=== PATIENT | female | born 1980 | race Caucasian/White ===

== ENCOUNTER 2019-06-08 21:07 | Inpatient (IN) | payer MEDICAID ==
[~2019-06-08] VITALS: Ht 149.9 cm; Wt 62.6 kg
--- NOTE | 2019-06-08 22:36 | NUR ---
PT RESTING IN BED, AAOX4 WITH C/O 10/10 GENERALIZED ABD PAIN SINCE EARLY THIS AM. PT STATES SHE ALSO HAD BURNING WITH URINATION A WEEK AGO AND VAGINAL IRRITATION X 2 DAYS. PT DENIES ANY N/V/D/C, RESP ILLNESS, OR FEVERS AT THIS TIME. PT ALSO STATES PAIN HAS STARTED TO RADIATE TO JEREMY FLANKS. VISITOR AT BEDSIDE.
[2019-06-08 22:38] LABS: PLATELET COUNT 249 x10^3mcL (130-400); RED CELL DISTRIBUTION WIDTH 13.2 % (11.5-14.5)
[2019-06-08 22:45] LABS: CALCIUM 9.3 mg/dL (8.5-10.1); CARBON DIOXIDE 28.1 mmol/L (21-32); CHLORIDE SERUM 104 mmol/L (98-107); CREATININE SERUM 0.8 mg/dL (0.6-1.0); GFR1 > 60 mL/min; GLUCOSE SERUM 140 mg/dL (74-106); POTASSIUM SERUM 3.8 mmol/L (3.5-5.1); SODIUM SERUM 138 mmol/L (136-145)
[2019-06-08 22:49] LABS: ALBUMIN 3.5 g/dL (3.4-5.0); ALKALINE PHOSPHATASE 81 U/L (46-116); BILIRUBIN TOTAL 0.25 mg/dL (0.20-1.00); LIPASE 135 IU/L (73-393); TOTAL PROTEIN, SERUM 7.3 g/dL (6.4-8.2)
[2019-06-08 23:06] LABS: ALT/SGPT 17 U/L (14-59); AST/SGOT 14 U/L (15-37)
--- NOTE | 2019-06-08 23:06 | NUR ---
PT OFF OF FLOOR TO CT SCAN.
--- NOTE | 2019-06-09 01:15 | NUR ---
PT STATING SHE WANTS TO LEAVE AMA. DR BRYANT MADE AWARE.
--- NOTE | 2019-06-09 01:46 | NUR ---
PT STOPPED ME WHILE I WAS WALKING DOWN HALLWAY AND NOTE STATED SHE WANTS TO STAY IN HOSPITAL. NOTIFIED PRIMARY RN DERRICK.
--- NOTE | 2019-06-09 01:50 | NUR ---
REPORT RECEIVED FROM DERRICK PRAKASH RN I WILL BE RESUMING CARE OF PT AT THIS TIME
--- NOTE | 2019-06-09 02:05 | NUR ---
PT IN POSITION OF COMFORT, RESPS E/U, AX INFUSING PER EMAR, AND ADMITTING RESIDENT AT BEDSIDE
[2019-06-09 02:41] LABS: MAGNESIUM 2.1 mg/dL (1.8-2.4)
[2019-06-09 03:41] VITALS: BP 106/55
[2019-06-09 03:57] LABS: UA SPECIFIC GRAVITY 1.015 (1.005-1.035); microscopic required? YES; urine erythrocyte 2+ (NEGATIVE)
--- NOTE | 2019-06-09 04:00 | NUR ---
RECEIVED PT FROM ED VIA REJI ACCOMPANIED BY A NURSE.PT CAME DUE TO ABDOMINAL PAIN.AAOX4.AMBULATORY. ABLE TO FOLLOW COMMANDS.LUNG SOUND CTA. BREATHING EVEN AND UNLABORED.DENIES ANY PAIN OR DISCOMFORT AT THIS TIME. SKIN INTACT.NO EDEMA NOTED TO ALL EXTREMITIES. IV SITE TO LAC,PATENT AND INTACT. BED IN LOWEST POSITION,CALL LIGHT WITHIN REACH. WILL CONTINUE TO MONITOR.
[2019-06-09 04:07] LABS: AMPHETAMINE QUAL UR NONE DETECTED (See below)
--- NOTE | 2019-06-09 05:36 | NUR ---
PT APPEARS TO BE SLEEPING.NO DISTRESS NOTED. DENIES ANY PAIN OR DISCOMFORT AT THIS TIME. BED IN LOWEST POSITION,CALL LIGHT WITHIN REACH. WILL CONTINUE TO MONITOR.
[2019-06-09 06:04] VITALS: BP 105/78
--- NOTE | 2019-06-09 07:04 | NUR ---
CARE ENDORSED TO DAY NURSE
--- NOTE | 2019-06-09 07:16 | NUR ---
RECEIVED PT FROM SHIFT NURSE A/OX4 SITTING UP IN BED. DENIES ANY ABD PAIN AT THIS TIME. IV INTACT AND PATENT. BED IN LOW POSITION. CALL LIGHT WITHIN REACH. WILL CONTINUE TO MONITOIR.
[2019-06-09 08:09] LABS: BASOPHIL % 0.2 % (0-2); PLATELET COUNT 209 x10^3mcL (130-400)
[2019-06-09 08:17] LABS: CARBON DIOXIDE 28.5 mmol/L (21-32); CHLORIDE SERUM 110 mmol/L (98-107); CREATININE SERUM 0.7 mg/dL (0.6-1.0); GFR1 > 60 mL/min; GLUCOSE SERUM 106 mg/dL (74-106); POTASSIUM SERUM 3.9 mmol/L (3.5-5.1); SODIUM SERUM 144 mmol/L (136-145)
[2019-06-09 09:03] VITALS: BP 89/57
--- NOTE | 2019-06-09 09:18 | NUR ---
PT HAS LOW BP 89/54. PT ASYMPTOMATIC. PAGED DR. MANDEL. AWAITING CALL BACK. WILL CONTINUE TO MONITOR.
[2019-06-09 10:06] VITALS: BP 117/67
--- NOTE | 2019-06-09 10:06 | NUR ---
RECHECKED BP 117/67. PT RESTING IN BED. NO ACUTE DISTSRESS NOTED. CALL LIGHT WITHIN REACH. WILL CONTINUE TO MONITOR.
--- NOTE | 2019-06-09 12:40 | NUR ---
Discount pharmacy card and list to low cost medical clinics given to patient by Marita.
--- NOTE | 2019-06-09 13:18 | NUR ---
PT C/O OF HEADACHE. GAVE TYLENOL ORDERED. WILL CONTINUE TO MONITOR.
--- NOTE | 2019-06-09 14:02 | NUR ---
PT SITTING UP IN BED RESTING. EXPRESSED RELIEF OF HEADACHE. FAMILY MEMBER AT BEDSIDE. CALL LIGHT WTIHIN REACH. WILL CONTINUE TO MONITOR.
[2019-06-09 17:28] VITALS: BP 103/54
--- NOTE | 2019-06-09 18:26 | NUR ---
PT RESTING IN BED TALKING WITH FAMILY MEMBERS. NO ACUTE DISTRESS NOTED. IV INTACT AND PATENT. CALL LIGHT WITHIN REACH. WILL BE ENDORSED.
--- NOTE | 2019-06-09 19:40 | NUR ---
AAO X4 VERBAL [place] SPEAKING, DENIES PAIN, ABD SOFT NON TENDER BS ACTIVE X4 QUADRANTS, LAST BM YESTERDAY PER PT, NO N/V, BRP VOIDS NON HEMATURIA NOR DISCOMFORTS, IVF NS INFUSING @ 100CC/HR IV ACCESS LAC PATENT NON INFIL, SHIFT ASSESSMENT DONE, PT DENIES NAUSEA OR VOMITING, WILL CONT TO MONITOR AND PROCEED TO CURRENT PLAN OF CARE.
[2019-06-09 20:21] VITALS: BP 105/63
--- NOTE | 2019-06-09 23:48 | NUR ---
PT C/O HEADACHE 03/10 PER ASSESSMENT NO DIZZINESS, V/S STABLE, NO NAUSEA OR VOMITING, TYLENOL 650 MG PO GIVEN PER PRN ORDER, REPOSITIONED SELF TO COMFORT CONT TO MONITOR.
[2019-06-10 05:54] VITALS: BP 98/62
[2019-06-10 06:37] LABS: CALCIUM 8.2 mg/dL (8.5-10.1); CHLORIDE SERUM 109 mmol/L (98-107); CREATININE SERUM 0.8 mg/dL (0.6-1.0); GFR1 > 60 mL/min; GLUCOSE SERUM 100 mg/dL (74-106); MAGNESIUM 2.1 mg/dL (1.8-2.4); PHOSPHOROUS 2.9 mg/dL (2.5-4.9); POTASSIUM SERUM 4.1 mmol/L (3.5-5.1); SODIUM SERUM 142 mmol/L (136-145)
[2019-06-10 06:46] LABS: BASOPHIL % 0.4 % (0-2); PLATELET COUNT 205 x10^3mcL (130-400); RED CELL DISTRIBUTION WIDTH 12.4 % (11.5-14.5)
--- NOTE | 2019-06-10 06:51 | NUR ---
PT DENIES ABDL PAIN, AMBULATES TO THE BATHROOM, ASKING IF SHE WILL BE GOING HOME TODAY, AFEBRILE, IVF INFUSING WELL, AWAITING FOR MD TO MAKE ROUNDS, ATTENDED NEEDS, CONT TO MONITOR.
--- NOTE | 2019-06-10 07:08 | NUR ---
RECEIVED PT FROM SHIFT NURSE A/OX4 LYING IN BED. NO ACUTE DISTRESS NOTED. IV INTACT AND PATENT. CALL LIGHT WITHIN REACH. WILL CONTINUE TO MONITOR.
[2019-06-10 08:32] VITALS: BP 104/69
--- NOTE | 2019-06-10 09:55 | NUR ---
PT ASLEEP BUT AROUSABLE. CALL LIGHT WITHIN REACH. WILL CONTINUE TO MONITOR.
--- NOTE | 2019-06-10 12:32 | NUR ---
PT SITTING UP IN BED TALKING WITH FAMILY MEMBERS. NO ACUTE DISTRESS NOTED. CALLL LIGHT WITHIN REACH. WILL CONTINUE TO MONITOR.
[2019-06-10] MEDS ORDERED: LEVOFLOXACIN500 M1 PO ×2 (12:36→13:31)
[2019-06-10 13:20] VITALS: BP 104/69
--- NOTE | 2019-06-10 15:02 | NUR ---
ALL DISCHARGE INSTRUCTION TO PT. ALL DISCHARGE PAPER HAS BEEN SIGNED. 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 WILL CONTINUE TO MONITOR THE PT.
[2019-06-14 10:20] VITALS: Ht 149.9 cm; Wt 62.6 kg
== END 2019-06-10 15:25 | disposition home or self-care (01) | DRG 463 ==
LOC: ED 21:07 → MU 06-09 01:34
PROVIDERS: ADMIT Internal Medicine
DX: N39.0 Urinary tract infection, site not specified (principal); E66.9 Obesity, unspecified; R73.03 Prediabetes; Z68.32 Body mass index [BMI] 32.0-32.9, adult
CPT/HCPCS: 83880; G0378; J0696; J1885; J1956; J3490; J7030; J7060; Q0092